=== PATIENT | female | born 1940 | race Caucasian/White ===

== ENCOUNTER 2023-02-01 11:13 | Emergency (ER) | payer MEDICARE ==
[2023-02-01 13:13] LABS: Bacteria/HPF None Seen HPF (None Seen); Bilirubin Negative (Negative); Blood, Urine Negative (Negative); CAUTI Indications for Culture Dysuria,urgency,freq; Clarity Turbid (Clear); Glucose, Urine (Dipstick) Normal (Negative); Ketone, Urine 20 mg/dL (Negative); Leukocyte 500 Leu/uL (Negative); Nitrite Negative (Negative); Protein, Urine (Dipstick) 30 mg/dL (Neg-Trace); Specific Gravity, Urine 1.019 (1.002-1.036); Urobilinogen Normal mg/dL (Less than 2); WBC/HPF Greater than 50 HPF (0-3); pH, Urine 5.5 (5.0-9.0)
[2023-02-01 13:17] LABS: Urine Culture Reflex Yes Yes
== END 2023-02-01 14:13 | disposition home or self-care (01) ==
LOC: ERS 11:13
DX: N39.0 Urinary tract infection, site not specified (principal); I10 Essential (primary) hypertension; R11.0 Nausea; E11.9 Type 2 diabetes mellitus without complications; E78.5 Hyperlipidemia, unspecified; Z79.899 Other long term (current) drug therapy; Z79.85 Long-term (current) use of injectable non-insulin antidiabetic drugs
CPT/HCPCS: 81001; 87086; 99283

== ENCOUNTER 2023-02-18 16:54 | Emergency (ER) | payer MEDICARE ==
[2023-02-18 17:40] LABS: #Eosinphils 0.2 thou/uL (0.0-0.7); #Monocytes 0.6 thou/uL (0.11-0.59); #Neutrophils 3.2 thou/uL (1.40-6.50); %Basophils 0.6 % (0.0-1.0); %Eosinophils 3.6 % (0.0-10.0); %Lymphocytes 38.7 % (21.0-51.0); %Monocytes 8.8 % (0.0-10.0); Hematocrit 40.6 % (36.0-47.0); Hemoglobin 13.2 g/dL (12.0-16.0); Mean Corpuscular HGB CONC 32.5 g/dL (32.0-36.0); Mean Corpuscular Hemoglobin 32.6 pg (27.0-31.0); Mean Corpuscular Volume 100.2 fl (78.0-98.0); Mean Platelet Volume 9.5 fL (7.4-10.4); Platelet Count 228 10x3/uL (130-400); RBC Distribution Width 13.2 % (11.5-14.5); Red Blood Cell (RBC) Count 4.05 mill/uL (4.20-5.40); White Blood Cell (WBC) Count 6.6 10x3/uL (4.8-10.8)
[2023-02-18 18:06] LABS: Bacteria/HPF 2+ HPF (None Seen); Bilirubin Negative (Negative); Blood, Urine Negative (Negative); CAUTI Indications for Culture Dysuria,urgency,freq; Clarity Turbid (Clear); Glucose, Urine (Dipstick) Normal (Negative); Ketone, Urine Negative (Negative); Leukocyte 500 Leu/uL (Negative); Nitrite Negative (Negative); Protein, Urine (Dipstick) 20 mg/dL (Neg-Trace); RBC/HPF 0-3 HPF (0-3); Specific Gravity, Urine 1.019 (1.002-1.036); Squamous Epithelial 0-3 HPF (0-3); Urobilinogen Normal mg/dL (Less than 2); WBC/HPF Greater than 50 HPF (0-3)
[2023-02-18 18:17] LABS: Yeast-Budding 1+ HPF (None Seen)
[2023-02-18 18:18] LABS: Urine Culture Reflex Yes Yes
[2023-02-18 18:31] LABS: ALT (SGPT) 12 U/L (8-55); AST (SGOT) 16 U/L (5-34); Albumin 3.9 g/dL (3.4-4.8); Alkaline Phosphatase 95 U/L (40-110); Anion Gap 15 mmol/L (10-20); BUN (Urea Nitrogen) 17 mg/dL (9.8-20.1); Bilirubin, Total 0.7 mg/dL (0.2-1.2); Calc. Creatinine Clearance 0 mL/min (70-130); Calcium 8.8 mg/dL (7.8-10.44); Carbon Dioxide 24 mmol/L (23-31); Chloride 107 mmol/L (98-107); Estimated GFR 55; Globulin 2.5 g/dL (2.4-3.5); Glucose 90 mg/dL (83-110); Protein, Total 6.4 g/dL (5.8-8.1); Sodium 142 mmol/L (136-145)
== END 2023-02-18 17:16 | disposition home or self-care (01) ==
LOC: ERS 16:54
DX: R82.71 Bacteriuria (principal); B37.31 Acute candidiasis of vulva and vagina; E11.9 Type 2 diabetes mellitus without complications; E78.5 Hyperlipidemia, unspecified; Z79.899 Other long term (current) drug therapy; Z79.84 Long term (current) use of oral hypoglycemic drugs
CPT/HCPCS: 51701; 80053; 81001; 85025; 87086; 99283

== ENCOUNTER 2023-09-09 10:44 | Inpatient (IN) | payer MEDICARE ==
[2023-09-09] MEDS ORDERED: Ondansetron PF 4 MG/2 ML Vial ONE (11:01)
[2023-09-09] MEDS ORDERED: Iopamidol-370 76% 500 ML MDV (1 ML CHARGE) ONE (11:02)
[2023-09-09 11:54] LABS: #Basophils 0.03 10x3/uL (0.0-0.2); %Basophils 0.2 % (0.0-1.0); %Eosinophils 0.3 % (0.0-10.0); %Lymphocytes 7.6 % (21.0-51.0); %Monocytes 3.4 % (0.0-10.0); Hematocrit 27.5 % (36.0-47.0); Hemoglobin 8.9 g/dL (12.0-16.0); Mean Corpuscular HGB CONC 32.4 g/dL (32.0-36.0); Mean Corpuscular Hemoglobin 33.8 pg (27.0-31.0); Mean Corpuscular Volume 104.6 fL (78.0-98.0); Mean Platelet Volume 11.9 fL (7.4-10.4); Platelet Count 103 10x3/uL (130-400); RBC Distribution Width 13.2 % (11.5-14.5); Red Blood Cell (RBC) Count 2.63 mill/uL (4.20-5.40)
[2023-09-09 12:02] LABS: INR-International Normal Ratio 1.2; PTT 35.5 sec (22.9-36.1)
[2023-09-09 12:06] LABS: Troponin I Less than 0.010 ng/mL (< 0.028)
[2023-09-09 12:14] LABS: ALT (SGPT) 14 U/L (8-55); AST (SGOT) 31 U/L (5-34); Albumin 3.3 g/dL (3.4-4.8); Alkaline Phosphatase 91 U/L (40-110); Anion Gap 19 mmol/L (10-20); BUN (Urea Nitrogen) 109 mg/dL (9.8-20.1); Bilirubin, Total 0.5 mg/dL (0.2-1.2); Calc. Creatinine Clearance 0 mL/min (70-130); Calcium 6.6 mg/dL (7.8-10.44); Carbon Dioxide 14 mmol/L (23-31); Chloride 114 mmol/L (98-107); Estimated GFR 6; Globulin 2.9 g/dL (2.4-3.5); Glucose 99 mg/dL (83-110); Potassium 6.8 mmol/L (3.5-5.1); Protein, Total 6.2 g/dL (5.8-8.1); Sodium 140 mmol/L (136-145)
[2023-09-09] MEDS ORDERED: Dextrose 10% in Water 250 ML ONE (13:00)
[2023-09-09] MEDS ORDERED: CALCIUM GLUC 1 GM/NS 50 ML IV Bag ONE (13:01)
[2023-09-09] MEDS ORDERED: Insulin Regular, Human 100 UNIT/ML 10 ML VIAL ONE (13:01)
[2023-09-09 13:15] LABS: Bilirubin Negative (Negative); Blood, Urine Negative (Negative); CAUTI Indications for Culture Dysuria,urgency,freq; Clarity Turbid (Clear); Glucose, Urine (Dipstick) Normal (Negative); Ketone, Urine Negative (Negative); Leukocyte 500 Leu/uL (Negative); Nitrite Negative (Negative); Protein, Urine (Dipstick) 50 mg/dL (Neg-Trace); RBC/HPF 0-3 HPF (0-3); Specific Gravity, Urine 1.012 (1.002-1.036); Squamous Epithelial 0-3 HPF (0-3); Urobilinogen Normal mg/dL (Less than 2)
[2023-09-09 13:31] LABS: Bacteria/HPF 4+ HPF (None Seen); WBC/HPF Greater than 50 HPF (0-3)
[2023-09-09 13:33] LABS: Urine Culture Reflex Yes Yes
[2023-09-09] MEDS ORDERED: Ondansetron PF 4 MG/2 ML Vial IVP PRN (14:15)
[2023-09-09] MEDS ORDERED: Calcium Carbonate 500 MG ChewTAB PO PRN (14:15)
[2023-09-09] MEDS ORDERED: Senokot S 8.6-50 MG TAB PO PRN (14:15)
[2023-09-09] MEDS ORDERED: hydrALAZINE 20 MG/ML VIAL SLOW IVP PRN (14:15)
[2023-09-09] MEDS ORDERED: cefTRIAXone (ROCEPHIN) 2 GM VIAL ONE (14:24)
[2023-09-09] MEDS ORDERED: Lorazepam 2 MG/ML VIAL SLOW IVP PRN (14:27)
[2023-09-09] MEDS ORDERED: Dextrose 5% in Water 1,000 ML IV PRN (14:44)
[2023-09-09] MEDS ORDERED: Glucagon 1 MG/ML KIT IM PRN (14:44)
[2023-09-09] MEDS ORDERED: Heparin 5,000 UNITS/ML VIAL SC SCH (15:00)
[2023-09-09] MEDS ORDERED: Insulin Lispro 100 UNIT/ML 10 ML VIAL SC PRN (15:59)
[2023-09-09] MEDS: Dextrose 50% Abboject 50 ML SYRINGE SLOW IVP SCH (16:55)
[2023-09-09] MEDS: CALCIUM GLUC 1 GM/NS 50 ML 1 GM in Premix 1 BAG IVPB SCH ×2 (16:55→21:24)
[2023-09-09] MEDS: Sodium Chloride 0.9% 1,000 ML IV SCH ×3 (16:55→17:47)
[2023-09-09] MEDS: Insulin Regular, Human 100 UNIT/ML 10 ML VIAL IVP SCH (16:55)
[2023-09-09] MEDS: LOKELMA 10 GM PACKET PO SCH (16:58)
[2023-09-09] MEDS: Acetaminophen 325 MG TAB PO SCH (16:58)
[2023-09-09] MEDS ORDERED: oxyCODONE/Acetaminophen 5 mg/325 mg Tablet PO PRN (18:00)
[2023-09-09 19:05] LABS: Troponin I Less than 0.010 ng/mL (< 0.028)
[2023-09-09 19:23] LABS: Anion Gap 18 mmol/L (10-20); BUN (Urea Nitrogen) 100 mg/dL (9.8-20.1); Calc. Creatinine Clearance 10 mL/min (70-130); Calcium 6.5 mg/dL (7.8-10.44); Carbon Dioxide 15 mmol/L (23-31); Chloride 112 mmol/L (98-107); Estimated GFR 6; Glucose 76 mg/dL (83-110); Potassium 5.4 mmol/L (3.5-5.1); Sodium 140 mmol/L (136-145)
[2023-09-09] MEDS: Cefepime 1 GM in Sodium Chloride 0.9% 100 ML IVPB SCH (19:28)
[2023-09-09] MEDS: Sodium Bicarb 50 mEq/50 ML VIAL IVP SCH (21:24)
[2023-09-09] MEDS: Sodium Bicarbonate Tab 325 MG TAB PO SCH (21:34)
[2023-09-09] MEDS: Atorvastatin Calcium 40 MG TAB PO SCH (21:34)
[2023-09-10 00:17] LABS: Anion Gap 18 mmol/L (10-20); BUN (Urea Nitrogen) 104 mg/dL (9.8-20.1); Calc. Creatinine Clearance 9 mL/min (70-130); Calcium 6.8 mg/dL (7.8-10.44); Carbon Dioxide 15 mmol/L (23-31); Chloride 113 mmol/L (98-107); Estimated GFR 6; Glucose 78 mg/dL (83-110); Potassium 5.2 mmol/L (3.5-5.1); Sodium 141 mmol/L (136-145)
[2023-09-10] MEDS: CALCIUM GLUC 1 GM/NS 50 ML 1 GM in Premix 1 BAG IVPB SCH ×2 (00:44→07:35)
[2023-09-10] MEDS: Calcium Gluconate 4.6 MEQ in Sodium Chloride 0.9% 100 ML IVPB ONE ×2 (00:46)
[2023-09-10] MEDS: Sodium Bicarbonate 150 MEQ in Dextrose 5% in Water 1,000 ML IV SCH (00:48)
[2023-09-10 04:38] LABS: Hematocrit 26.5 % (36.0-47.0); Hemoglobin 8.4 g/dL (12.0-16.0); Mean Corpuscular HGB CONC 31.7 g/dL (32.0-36.0); Mean Corpuscular Hemoglobin 33.5 pg (27.0-31.0); Mean Corpuscular Volume 105.6 fL (78.0-98.0); Mean Platelet Volume 12.2 fL (7.4-10.4); Platelet Count 103 10x3/uL (130-400); RBC Distribution Width 13.4 % (11.5-14.5); Red Blood Cell (RBC) Count 2.51 mill/uL (4.20-5.40)
[2023-09-10 04:44] LABS: Hemoglobin A1c 5.2 % (4.0-6.0)
[2023-09-10 05:08] LABS: Anisocytosis SLIGHT = 6-15 cells HPF (0-5); Lymphocytes 5 % (21-51); Macrocytosis SLIGHT = 6-15 cells HPF (0-5); Monocytes 2 % (0-10); Neutrophil 93 % (42-75); Nucleated RBC (Manual Ct) 1 % (0); Platelet Adequacy Comment Platelets Decreased; Polychromasia SLIGHT = 2-3 cells HPF (0-2)
[2023-09-10 05:15] LABS: ALT (SGPT) 13 U/L (8-55); AST (SGOT) 19 U/L (5-34); Alkaline Phosphatase 84 U/L (40-110); Anion Gap 20 mmol/L (10-20); BUN (Urea Nitrogen) 102 mg/dL (9.8-20.1); Bilirubin, Total 0.4 mg/dL (0.2-1.2); Calc. Creatinine Clearance 9 mL/min (70-130); Calcium 6.9 mg/dL (7.8-10.44); Carbon Dioxide 16 mmol/L (23-31); Cardiac Risk 1.9 (Less than 4.5); Chloride 113 mmol/L (98-107); Cholesterol 67 mg/dl (< 200 Desired); Estimated GFR 6; Globulin 2.4 g/dL (2.4-3.5); Glucose 73 mg/dL (83-110); HDL Cholesterol 35 mg/dL (>60 Neg Risk); LDL Cholesterol, Calculated 26 mg/dL; Potassium 5.1 mmol/L (3.5-5.1); Protein, Total 5.4 g/dL (5.8-8.1); Sodium 144 mmol/L (136-145); Triglycerides 32 mg/dL (Less than 150)
[2023-09-10] MEDS: Pantoprazole DR 40 MG TAB PO SCH (08:58)
[2023-09-10] MEDS: Aspirin 81 mg Enteric Coated Tablet PO SCH (08:58)
[2023-09-10] MEDS: Clopidogrel Bisulfate 75 MG TAB PO SCH (08:58)
[2023-09-10] MEDS: Tamsulosin HCl 0.4 MG CAP PO SCH (08:59)
[2023-09-10] MEDS: Azithromycin 500 MG in Sodium Chloride 0.9% 250 ML 250 ML IVPB SCH (09:02)
[2023-09-10] MEDS: Dextrose 50% Abboject 50 ML SYRINGE SLOW IVP PRN (11:15)
[2023-09-10] MEDS: Dextrose 5 % And 0.9 % NaCl 1,000 ML IV SCH (11:19)
[2023-09-10] MEDS: Albumin 25% 25 GM (100 mL) BOT IVPB SCH (13:33)
[2023-09-11 05:18] LABS: #Basophils 0.03 10x3/uL (0.0-0.2); %Basophils 0.4 % (0.0-1.0); %Lymphocytes 14.7 % (21.0-51.0); %Monocytes 7.4 % (0.0-10.0); %Neutrophils 68.2 % (42.0-75.0); Hematocrit 23.7 % (36.0-47.0); Hemoglobin 7.4 g/dL (12.0-16.0); Mean Corpuscular HGB CONC 31.2 g/dL (32.0-36.0); Mean Corpuscular Hemoglobin 33.3 pg (27.0-31.0); Mean Corpuscular Volume 106.8 fL (78.0-98.0); Mean Platelet Volume 12.1 fL (7.4-10.4); Platelet Count 99 10x3/uL (130-400); RBC Distribution Width 13.8 % (11.5-14.5); Red Blood Cell (RBC) Count 2.22 mill/uL (4.20-5.40)
[2023-09-11 05:28] LABS: ALT (SGPT) 11 U/L (8-55); AST (SGOT) 15 U/L (5-34); Albumin 3.6 g/dL (3.4-4.8); Alkaline Phosphatase 64 U/L (40-110); Anion Gap 17 mmol/L (10-20); BUN (Urea Nitrogen) 98 mg/dL (9.8-20.1); Bilirubin, Total 0.3 mg/dL (0.2-1.2); Calc. Creatinine Clearance 9 mL/min (70-130); Calcium 6.7 mg/dL (7.8-10.44); Carbon Dioxide 15 mmol/L (23-31); Chloride 115 mmol/L (98-107); Estimated GFR 6; Globulin 1.8 g/dL (2.4-3.5); Glucose 132 mg/dL (83-110); Magnesium 1.5 mg/dL (1.6-2.6); Phosphorus 8.8 mg/dL (2.3-4.7); Protein, Total 5.4 g/dL (5.8-8.1); Sodium 142 mmol/L (136-145)
[2023-09-11] MEDS: Magnesium 2 GM/50 ML(in water) 2 GM in Premix 1 BAG IVPB SCH (06:06)
[2023-09-11] MEDS: CALCIUM GLUC 1 GM/NS 50 ML 1 GM in Premix 1 BAG IVPB SCH (06:07)
[2023-09-11] MEDS: Calcium Gluconate 4.6 MEQ in Sodium Chloride 0.9% 100 ML IVPB ONE (09:23)
[2023-09-11] MEDS ORDERED: Morphine 2 MG/ML VIAL SLOW IVP PRN (11:41)
[2023-09-11] MEDS: Calcium Acetate 667 MG CAP PO SCH (13:54)
[2023-09-11] MEDS ORDERED: Meropenem 500 MG in Sodium Chloride 0.9% 100 ML IVPB SCH (14:00)
[2023-09-11] MEDS: Meropenem 500 MG in Sodium Chloride 0.9% 100 ML IVPB SCH (14:32)
[2023-09-12] MEDS: Meropenem 500 MG in Sodium Chloride 0.9% 100 ML IVPB SCH (02:42)
[2023-09-12 06:35] LABS: Hematocrit 24.7 % (36.0-47.0); Hemoglobin 7.8 g/dL (12.0-16.0); Mean Corpuscular HGB CONC 31.6 g/dL (32.0-36.0); Mean Corpuscular Hemoglobin 33.6 pg (27.0-31.0); Mean Corpuscular Volume 106.5 fL (78.0-98.0); Mean Platelet Volume 11.3 fL (7.4-10.4); Platelet Count 120 10x3/uL (130-400); Red Blood Cell (RBC) Count 2.32 mill/uL (4.20-5.40)
[2023-09-12 07:02] LABS: Band 3 % (5-11); Eosinophils 5 % (0-10); Lymphocytes 15 % (21-51); Macrocytosis SLIGHT = 6-15 cells HPF (0-5); Metamyelocyte 1 % (0-0); Monocytes 5 % (0-10); Myelocyte 1 % (0-0); Neutrophil 70 % (42-75); Platelet Adequacy Comment Platelets Decreased
[2023-09-12 07:10] LABS: ALT (SGPT) 10 U/L (8-55); AST (SGOT) 11 U/L (5-34); Albumin 3.3 g/dL (3.4-4.8); Alkaline Phosphatase 61 U/L (40-110); Anion Gap 16 mmol/L (10-20); BUN (Urea Nitrogen) 92 mg/dL (9.8-20.1); Bilirubin, Total 0.3 mg/dL (0.2-1.2); Calc. Creatinine Clearance 10 mL/min (70-130); Calcium 6.9 mg/dL (7.8-10.44); Carbon Dioxide 15 mmol/L (23-31); Chloride 120 mmol/L (98-107); Estimated GFR 6; Globulin 1.8 g/dL (2.4-3.5); Glucose 122 mg/dL (83-110); Potassium 4.8 mmol/L (3.5-5.1); Protein, Total 5.1 g/dL (5.8-8.1); Sodium 146 mmol/L (136-145)
[2023-09-12] MEDS: Calcium Chloride 1 GM/10 ML Abboject SYRINGE IVP SCH (08:52)
[2023-09-12] MEDS: Dextrose 5 %-0.45 % NaCl 1,000 ML IV SCH (08:54)
[2023-09-13 04:30] LABS: #Basophils 0.04 10x3/uL (0.0-0.2); %Basophils 0.3 % (0.0-1.0); %Eosinophils 0.5 % (0.0-10.0); %Lymphocytes 7.2 % (21.0-51.0); %Monocytes 7.5 % (0.0-10.0); %Neutrophils 81.7 % (42.0-75.0); Hematocrit 27.3 % (36.0-47.0); Hemoglobin 8.5 g/dL (12.0-16.0); Mean Corpuscular HGB CONC 31.1 g/dL (32.0-36.0); Mean Corpuscular Hemoglobin 33.5 pg (27.0-31.0); Mean Corpuscular Volume 107.5 fL (78.0-98.0); Mean Platelet Volume 11.4 fL (7.4-10.4); Platelet Count 136 10x3/uL (130-400); RBC Distribution Width 14.1 % (11.5-14.5); Red Blood Cell (RBC) Count 2.54 mill/uL (4.20-5.40)
[2023-09-13 05:09] LABS: ALT (SGPT) 11 U/L (8-55); AST (SGOT) 16 U/L (5-34); Albumin 3.4 g/dL (3.4-4.8); Alkaline Phosphatase 67 U/L (40-110); Anion Gap 18 mmol/L (10-20); BUN (Urea Nitrogen) 87 mg/dL (9.8-20.1); Bilirubin, Total 0.4 mg/dL (0.2-1.2); Calc. Creatinine Clearance 10 mL/min (70-130); Carbon Dioxide 14 mmol/L (23-31); Chloride 121 mmol/L (98-107); Estimated GFR 7; Globulin 2.1 g/dL (2.4-3.5); Glucose 142 mg/dL (83-110); Potassium 4.8 mmol/L (3.5-5.1); Protein, Total 5.5 g/dL (5.8-8.1); Sodium 148 mmol/L (136-145)
[2023-09-13] MEDS: Calcitriol 0.25 MCG CAP PO SCH (08:36)
[2023-09-13] MEDS: Dextrose 5 %-0.45 % NaCl 1,000 ML IV SCH (08:37)
[2023-09-13] MEDS: Meropenem 500 MG in Sodium Chloride 0.9% 100 ML IVPB SCH (13:45)
[2023-09-14 05:12] VITALS: BMI 36.8
[2023-09-14 06:19] LABS: #Basophils 0.06 10x3/uL (0.0-0.2); %Basophils 0.7 % (0.0-1.0); %Eosinophils 2.4 % (0.0-10.0); %Lymphocytes 15.1 % (21.0-51.0); %Monocytes 13.2 % (0.0-10.0); %Neutrophils 66.8 % (42.0-75.0); Hematocrit 27.2 % (36.0-47.0); Hemoglobin 8.8 g/dL (12.0-16.0); Mean Corpuscular HGB CONC 32.4 g/dL (32.0-36.0); Mean Corpuscular Hemoglobin 33.1 pg (27.0-31.0); Mean Corpuscular Volume 102.3 fL (78.0-98.0); Mean Platelet Volume 11.4 fL (7.4-10.4); Platelet Count 111 10x3/uL (130-400); Red Blood Cell (RBC) Count 2.66 mill/uL (4.20-5.40)
[2023-09-14 07:01] LABS: ALT (SGPT) 12 U/L (8-55); AST (SGOT) 18 U/L (5-34); Albumin 3.2 g/dL (3.4-4.8); Alkaline Phosphatase 73 U/L (40-110); Anion Gap 21 mmol/L (10-20); BUN (Urea Nitrogen) 83 mg/dL (9.8-20.1); Bilirubin, Total 0.4 mg/dL (0.2-1.2); Calc. Creatinine Clearance 12 mL/min (70-130); Calcium 7.7 mg/dL (7.8-10.44); Carbon Dioxide 12 mmol/L (23-31); Chloride 117 mmol/L (98-107); Estimated GFR 7; Globulin 2.3 g/dL (2.4-3.5); Glucose 115 mg/dL (83-110); Potassium 4.9 mmol/L (3.5-5.1); Protein, Total 5.5 g/dL (5.8-8.1); Sodium 145 mmol/L (136-145)
[2023-09-15 06:29] LABS: Anion Gap 14 mmol/L (10-20); BUN (Urea Nitrogen) 84 mg/dL (9.8-20.1); Calc. Creatinine Clearance 12 mL/min (70-130); Calcium 7.7 mg/dL (7.8-10.44); Carbon Dioxide 13 mmol/L (23-31); Chloride 121 mmol/L (98-107); Estimated GFR 7; Glucose 102 mg/dL (83-110); Potassium 4.7 mmol/L (3.5-5.1); Sodium 143 mmol/L (136-145)
[2023-09-15 08:31] LABS: #Basophils 0.03 10x3/uL (0.0-0.2); %Basophils 0.5 % (0.0-1.0); %Eosinophils 5.6 % (0.0-10.0); %Monocytes 14.3 % (0.0-10.0); %Neutrophils 60.4 % (42.0-75.0); Hematocrit 24.8 % (36.0-47.0); Hemoglobin 7.7 g/dL (12.0-16.0); Mean Corpuscular Hemoglobin 33.5 pg (27.0-31.0); Mean Corpuscular Volume 107.8 fL (78.0-98.0); Mean Platelet Volume 11.1 fL (7.4-10.4); Platelet Count 97 10x3/uL (130-400); RBC Distribution Width 14.2 % (11.5-14.5)
[2023-09-15] MEDS: Meropenem 500 MG in Sodium Chloride 0.9% 100 ML IVPB SCH (13:23)
[2023-09-16 04:38] LABS: Anion Gap 14 mmol/L (10-20); BUN (Urea Nitrogen) 84 mg/dL (9.8-20.1); Calc. Creatinine Clearance 12 mL/min (70-130); Calcium 7.8 mg/dL (7.8-10.44); Carbon Dioxide 16 mmol/L (23-31); Chloride 117 mmol/L (98-107); Estimated GFR 7; Glucose 115 mg/dL (83-110); Potassium 4.9 mmol/L (3.5-5.1); Sodium 142 mmol/L (136-145)
[2023-09-16 04:46] LABS: #Basophils 0.04 10x3/uL (0.0-0.2); %Basophils 0.7 % (0.0-1.0); %Eosinophils 6.5 % (0.0-10.0); %Lymphocytes 21.1 % (21.0-51.0); %Monocytes 14.1 % (0.0-10.0); %Neutrophils 56.7 % (42.0-75.0); Hematocrit 24.6 % (36.0-47.0); Hemoglobin 7.6 g/dL (12.0-16.0); Mean Corpuscular HGB CONC 31.1 g/dL (32.0-36.0); Mean Corpuscular Hemoglobin 33.6 pg (27.0-31.0); Mean Corpuscular Volume 108.1 fL (78.0-98.0); Mean Platelet Volume 11.7 fL (7.4-10.4); Platelet Count 90 10x3/uL (130-400); Red Blood Cell (RBC) Count 2.23 mill/uL (4.20-5.40)
[2023-09-16] MEDS: Insulin Lispro 100 UNIT/ML 10 ML VIAL SC PRN (06:36)
[2023-09-16] MEDS: Dextrose 5 %-0.45 % NaCl 1,000 ML IV SCH (10:07)
[2023-09-16 15:06] VITALS: BMI 36.8
[2023-09-17 09:47] LABS: #Basophils 0.03 10x3/uL (0.0-0.2); %Basophils 0.6 % (0.0-1.0); %Eosinophils 7.1 % (0.0-10.0); %Monocytes 13.3 % (0.0-10.0); Hematocrit 24.6 % (36.0-47.0); Hemoglobin 7.7 g/dL (12.0-16.0); Mean Corpuscular HGB CONC 31.3 g/dL (32.0-36.0); Mean Corpuscular Hemoglobin 33.8 pg (27.0-31.0); Mean Corpuscular Volume 107.9 fL (78.0-98.0); Mean Platelet Volume 11.6 fL (7.4-10.4); Platelet Count 96 10x3/uL (130-400); RBC Distribution Width 13.8 % (11.5-14.5); Red Blood Cell (RBC) Count 2.28 mill/uL (4.20-5.40)
[2023-09-17 10:10] LABS: Anion Gap 14 mmol/L (10-20); BUN (Urea Nitrogen) 84 mg/dL (9.8-20.1); Calc. Creatinine Clearance 12 mL/min (70-130); Calcium 7.8 mg/dL (7.8-10.44); Carbon Dioxide 15 mmol/L (23-31); Chloride 116 mmol/L (98-107); Estimated GFR 8; Glucose 112 mg/dL (83-110); Potassium 5.1 mmol/L (3.5-5.1); Sodium 140 mmol/L (136-145)
[2023-09-17 13:30] VITALS: BP 134/71; TEMP 97.3
== END 2023-09-17 13:30 | DRG 193 ==
LOC: ERS 10:44 → SUATTDRO 10:44 → IMCU/EMU 16:52 → T4-B 09-13 17:30
PROVIDERS: ADMIT Internal Medicine; ATTEND Internal Medicine
PROC: 4A00X4Z Measurement of Central Nervous Electrical Activity, External Approach (ICD-10-PCS; principal; 2023-09-10)
DX: J18.9 Pneumonia, unspecified organism (principal); G93.41 Metabolic encephalopathy; N17.0 Acute kidney failure with tubular necrosis; E87.20 Acidosis, unspecified; N39.0 Urinary tract infection, site not specified; N25.81 Secondary hyperparathyroidism of renal origin; E87.0 Hyperosmolality and hypernatremia; G45.9 Transient cerebral ischemic attack, unspecified; N18.5 Chronic kidney disease, stage 5; I12.0 Hypertensive chronic kidney disease with stage 5 chronic kidney disease or end stage renal disease; E66.9 Obesity, unspecified; G89.29 Other chronic pain; E11.22 Type 2 diabetes mellitus with diabetic chronic kidney disease; E87.5 Hyperkalemia; K21.9 Gastro-esophageal reflux disease without esophagitis; D69.6 Thrombocytopenia, unspecified; E83.51 Hypocalcemia; E83.39 Other disorders of phosphorus metabolism; E87.8 Other disorders of electrolyte and fluid balance, not elsewhere classified; D63.1 Anemia in chronic kidney disease; B96.20 Unspecified Escherichia coli [E. coli] as the cause of diseases classified elsewhere; Z79.82 Long term (current) use of aspirin; Z79.899 Other long term (current) drug therapy
CPT/HCPCS: 36415; 36416; 51702; 70450; 70496; 70498; 70551; 71045; 74177; 80048; 80053; 80061; 81001; 82310; 83036; 83735; 83970; 84100; 84145; 84443; 84484; 85025; 85610; 85730; 87040; 87077; 87086; 87186; 93005; 93306; 95700; 95711; 95819; 96374; 96375; J0456; J0613; J0692; J0696; J1815; J2185; J2405; J3475; J3490; J7042; J7050; J7070; J7999; P9047; Q9967

== ENCOUNTER 2023-09-21 14:19 | Inpatient (IN) | payer MEDICARE ==
[2023-09-21 14:55] LABS: Actual Bicarbonate (HCO3v) 16.8 mEq/L (22-28); Base Excess -10.3 mEq/L (-2.0 to +3.0); Calcium, Ionized (venous) 1.22 mmol/L (1.16-1.32); Chloride (VBG) 113 mmol/L (98-106); Hematocrit-VBG 26 % (36.0-47.0); Hemoglobin (Hb) 8.8 g/dL (11.7-16.1); Potassium (VBG) 5.24 mmol/L (3.70-5.30); Sodium 143 mmol/L (133-146); pH (venous) 7.216 (7.32-7.43)
[2023-09-21 15:08] LABS: #Basophils 0.03 10x3/uL (0.0-0.2); %Basophils 0.7 % (0.0-1.0); %Eosinophils 2.5 % (0.0-10.0); %Monocytes 8.6 % (0.0-10.0); %Neutrophils 69.6 % (42.0-75.0); Hematocrit 24.9 % (36.0-47.0); Hemoglobin 8.2 g/dL (12.0-16.0); Mean Corpuscular HGB CONC 32.9 g/dL (32.0-36.0); Mean Corpuscular Hemoglobin 34.5 pg (27.0-31.0); Mean Corpuscular Volume 104.6 fL (78.0-98.0); Mean Platelet Volume 10.5 fL (7.4-10.4); Platelet Count 135 10x3/uL (130-400); RBC Distribution Width 13.8 % (11.5-14.5); Red Blood Cell (RBC) Count 2.38 mill/uL (4.20-5.40)
[2023-09-21 15:16] LABS: Phosphorus 6.4 mg/dL (2.3-4.7)
[2023-09-21 15:20] LABS: ALT (SGPT) 11 U/L (8-55); AST (SGOT) 18 U/L (5-34); Albumin 3.3 g/dL (3.4-4.8); Alkaline Phosphatase 78 U/L (40-110); Anion Gap 17 mmol/L (10-20); BUN (Urea Nitrogen) 87 mg/dL (9.8-20.1); Bilirubin, Total 0.4 mg/dL (0.2-1.2); Calc. Creatinine Clearance 0 mL/min (70-130); Carbon Dioxide 16 mmol/L (23-31); Chloride 118 mmol/L (98-107); Estimated GFR 7; Globulin 2.3 g/dL (2.4-3.5); Glucose 119 mg/dL (83-110); Potassium 5.4 mmol/L (3.5-5.1); Protein, Total 5.6 g/dL (5.8-8.1); Sodium 146 mmol/L (136-145)
[2023-09-21] MEDS ORDERED: Insulin Regular, Human 100 UNIT/ML 10 ML VIAL ONE (16:24)
[2023-09-21] MEDS ORDERED: CALCIUM GLUC 1 GM/NS 50 ML IV Bag ONE ×2 (16:24→16:25)
[2023-09-21] MEDS ORDERED: Dextrose 10% in Water 250 ML ONE (16:24)
[2023-09-21] MEDS ORDERED: Senokot S 8.6-50 MG TAB PO PRN (17:16)
[2023-09-21] MEDS ORDERED: Acetaminophen 325 MG TAB PO PRN (17:16)
[2023-09-21 18:32] VITALS: BMI 39.0
[2023-09-21] MEDS ORDERED: Furosemide 20 MG (2 mL) VIAL ONE (20:14)
[2023-09-21] MEDS ORDERED: Sodium Bicarbonate Tab 325 MG TAB ONE (20:14)
[2023-09-21] MEDS ORDERED: Heparin 5,000 UNITS/ML VIAL ONE (20:14)
[2023-09-21] MEDS: Sodium Bicarbonate Tab 325 MG TAB PO SCH (20:17)
[2023-09-21] MEDS: Heparin 5,000 UNITS/ML VIAL SC SCH (20:20)
[2023-09-21] MEDS: Furosemide 20 MG (2 mL) VIAL SLOW IVP SCH (20:20)
[2023-09-22 00:47] LABS: Anion Gap 19 mmol/L (10-20); BUN (Urea Nitrogen) 87 mg/dL (9.8-20.1); Calc. Creatinine Clearance 12 mL/min (70-130); Calcium 9.1 mg/dL (7.8-10.44); Carbon Dioxide 16 mmol/L (23-31); Chloride 117 mmol/L (98-107); Estimated GFR 7; Glucose 118 mg/dL (83-110); Phosphorus 6.1 mg/dL (2.3-4.7); Potassium 5.3 mmol/L (3.5-5.1); Sodium 147 mmol/L (136-145)
[2023-09-22 04:22] LABS: Hematocrit 25.8 % (36.0-47.0); Hemoglobin 8.1 g/dL (12.0-16.0); Mean Corpuscular HGB CONC 31.4 g/dL (32.0-36.0); Mean Corpuscular Hemoglobin 32.8 pg (27.0-31.0); Mean Corpuscular Volume 104.5 fL (78.0-98.0); Mean Platelet Volume 10.9 fL (7.4-10.4); Platelet Count 160 10x3/uL (130-400); RBC Distribution Width 13.5 % (11.5-14.5); Red Blood Cell (RBC) Count 2.47 mill/uL (4.20-5.40)
[2023-09-22 04:44] LABS: Albumin 3.2 g/dL (3.4-4.8); Anion Gap 15 mmol/L (10-20); BUN (Urea Nitrogen) 87 mg/dL (9.8-20.1); BUN/Creatinine Ratio 15.29; Calc. Creatinine Clearance 12 mL/min (70-130); Calcium 9.2 mg/dL (7.8-10.44); Carbon Dioxide 18 mmol/L (23-31); Chloride 117 mmol/L (98-107); Estimated GFR 7; Glucose 113 mg/dL (83-110); Phosphorus 6.2 mg/dL (2.3-4.7); Potassium 5.4 mmol/L (3.5-5.1); Sodium 145 mmol/L (136-145)
[2023-09-22] MEDS ORDERED: Ipratropium/Albuterol 3 ML NEB NEB PRN (09:14)
[2023-09-22] MEDS: Furosemide 40 MG (4 mL) VIAL SLOW IVP SCH (10:15)
[2023-09-22] MEDS: Sevelamer Carbonate 800 MG TAB PO SCH (13:54)
[2023-09-22 14:07] VITALS: BMI 39.0
[2023-09-22] MEDS: Atorvastatin Calcium 40 MG TAB PO SCH (20:16)
[2023-09-23 05:48] LABS: #Basophils 0.05 10x3/uL (0.0-0.2); %Eosinophils 6.2 % (0.0-10.0); %Lymphocytes 14.6 % (21.0-51.0); %Monocytes 14.6 % (0.0-10.0); %Neutrophils 62.4 % (42.0-75.0); Hematocrit 26.4 % (36.0-47.0); Hemoglobin 8.3 g/dL (12.0-16.0); Mean Corpuscular HGB CONC 31.4 g/dL (32.0-36.0); Mean Corpuscular Hemoglobin 32.7 pg (27.0-31.0); Mean Corpuscular Volume 103.9 fL (78.0-98.0); Mean Platelet Volume 10.6 fL (7.4-10.4); Platelet Count 159 10x3/uL (130-400); RBC Distribution Width 13.6 % (11.5-14.5); Red Blood Cell (RBC) Count 2.54 mill/uL (4.20-5.40)
[2023-09-23 05:54] LABS: Anion Gap 15 mmol/L (10-20); BUN (Urea Nitrogen) 82 mg/dL (9.8-20.1); Calc. Creatinine Clearance 12 mL/min (70-130); Calcium 8.7 mg/dL (7.8-10.44); Carbon Dioxide 18 mmol/L (23-31); Chloride 115 mmol/L (98-107); Estimated GFR 7; Glucose 98 mg/dL (83-110); Potassium 5.1 mmol/L (3.5-5.1); Sodium 143 mmol/L (136-145)
[2023-09-23] MEDS: Senokot S 8.6-50 MG TAB PO SCH (09:22)
[2023-09-23] MEDS: Furosemide 40 MG (4 mL) VIAL SLOW IVP SCH (09:22)
[2023-09-23] MEDS: Pantoprazole DR 40 MG TAB PO SCH (09:23)
[2023-09-23] MEDS: Aspirin Chewable 81 MG TAB PO SCH (09:23)
[2023-09-23] MEDS: Calcitriol 0.25 MCG CAP PO SCH (09:23)
[2023-09-23] MEDS: Clopidogrel Bisulfate 75 MG TAB PO SCH (09:23)
[2023-09-24 04:46] LABS: #Basophils 0.05 10x3/uL (0.0-0.2); %Basophils 1.2 % (0.0-1.0); %Eosinophils 4.4 % (0.0-10.0); %Lymphocytes 18.3 % (21.0-51.0); %Monocytes 10.4 % (0.0-10.0); %Neutrophils 64.8 % (42.0-75.0); Hematocrit 26.8 % (36.0-47.0); Hemoglobin 8.5 g/dL (12.0-16.0); Mean Corpuscular HGB CONC 31.7 g/dL (32.0-36.0); Mean Corpuscular Hemoglobin 33.5 pg (27.0-31.0); Mean Corpuscular Volume 105.5 fL (78.0-98.0); Mean Platelet Volume 10.4 fL (7.4-10.4); Platelet Count 156 10x3/uL (130-400); RBC Distribution Width 13.2 % (11.5-14.5); Red Blood Cell (RBC) Count 2.54 mill/uL (4.20-5.40)
[2023-09-24 05:10] LABS: Anion Gap 17 mmol/L (10-20); BUN (Urea Nitrogen) 81 mg/dL (9.8-20.1); Calc. Creatinine Clearance 13 mL/min (70-130); Calcium 8.3 mg/dL (7.8-10.44); Carbon Dioxide 16 mmol/L (23-31); Chloride 113 mmol/L (98-107); Estimated GFR 8; Glucose 103 mg/dL (83-110); Sodium 141 mmol/L (136-145)
[2023-09-24] MEDS: Furosemide 40 MG (4 mL) VIAL SLOW IVP SCH (10:35)
[2023-09-25 05:06] LABS: Anion Gap 21 mmol/L (10-20); BUN (Urea Nitrogen) 80 mg/dL (9.8-20.1); Calc. Creatinine Clearance 13 mL/min (70-130); Carbon Dioxide 13 mmol/L (23-31); Chloride 111 mmol/L (98-107); Estimated GFR 8; Glucose 92 mg/dL (83-110); Potassium 5.5 mmol/L (3.5-5.1); Sodium 139 mmol/L (136-145)
[2023-09-25 05:49] LABS: #Basophils 0.04 10x3/uL (0.0-0.2); %Basophils 1.1 % (0.0-1.0); %Eosinophils 3.8 % (0.0-10.0); %Lymphocytes 18.4 % (21.0-51.0); %Monocytes 9.7 % (0.0-10.0); %Neutrophils 65.9 % (42.0-75.0); Hematocrit 24.8 % (36.0-47.0); Hemoglobin 7.9 g/dL (12.0-16.0); Mean Corpuscular HGB CONC 31.9 g/dL (32.0-36.0); Mean Corpuscular Hemoglobin 33.2 pg (27.0-31.0); Mean Corpuscular Volume 104.2 fL (78.0-98.0); Mean Platelet Volume 10.5 fL (7.4-10.4); Platelet Count 162 10x3/uL (130-400); RBC Distribution Width 13.2 % (11.5-14.5); Red Blood Cell (RBC) Count 2.38 mill/uL (4.20-5.40)
[2023-09-25] MEDS: Ferrous Sulfate 325 MG TAB PO SCH (09:15)
[2023-09-25] MEDS: EPOETIN ALFA-EPBX (ESRD) 10,000 UNITS/ML VIAL SC SCH (09:37)
[2023-09-26 04:49] LABS: #Basophils 0.05 10x3/uL (0.0-0.2); %Eosinophils 1.9 % (0.0-10.0); %Monocytes 9.6 % (0.0-10.0); %Neutrophils 72.2 % (42.0-75.0); Hematocrit 25.7 % (36.0-47.0); Hemoglobin 8.2 g/dL (12.0-16.0); Mean Corpuscular HGB CONC 31.9 g/dL (32.0-36.0); Mean Corpuscular Hemoglobin 33.5 pg (27.0-31.0); Mean Corpuscular Volume 104.9 fL (78.0-98.0); Mean Platelet Volume 10.6 fL (7.4-10.4); Platelet Count 189 10x3/uL (130-400); RBC Distribution Width 13.2 % (11.5-14.5); Red Blood Cell (RBC) Count 2.45 mill/uL (4.20-5.40)
[2023-09-26 05:06] LABS: Anion Gap 24 mmol/L (10-20); BUN (Urea Nitrogen) 80 mg/dL (9.8-20.1); Calc. Creatinine Clearance 14 mL/min (70-130); Calcium 8.2 mg/dL (7.8-10.44); Carbon Dioxide 16 mmol/L (23-31); Chloride 111 mmol/L (98-107); Estimated GFR 8; Glucose 100 mg/dL (83-110); Potassium 5.1 mmol/L (3.5-5.1); Sodium 146 mmol/L (136-145)
[2023-09-26] MEDS: Ondansetron PF 4 MG/2 ML Vial IVP PRN (06:41)
[2023-09-27 08:04] VITALS: BP 128/59; TEMP 96.9
== END 2023-09-27 11:50 | DRG 682 ==
LOC: ERS 14:19 → ERHOLD 16:40 → 2NO 21:17
PROVIDERS: ADMIT Internal Medicine; ATTEND Internal Medicine
DX: N17.0 Acute kidney failure with tubular necrosis (principal); I50.33 Acute on chronic diastolic (congestive) heart failure; J96.01 Acute respiratory failure with hypoxia; E87.20 Acidosis, unspecified; I13.0 Hypertensive heart and chronic kidney disease with heart failure and stage 1 through stage 4 chronic kidney disease, or unspecified chronic kidney disease; E87.0 Hyperosmolality and hypernatremia; E11.22 Type 2 diabetes mellitus with diabetic chronic kidney disease; Z79.82 Long term (current) use of aspirin; Z79.899 Other long term (current) drug therapy; E87.5 Hyperkalemia; E83.39 Other disorders of phosphorus metabolism; D53.9 Nutritional anemia, unspecified; Z87.440 Personal history of urinary (tract) infections; N18.9 Chronic kidney disease, unspecified
CPT/HCPCS: 36415; 36416; 71045; 80048; 80053; 82805; 83735; 83880; 84100; 85025; 85027; 93005; 96365; 96375; J0613; J1644; J1815; J1940; J2405; Q5105

== ENCOUNTER 2024-03-07 22:10 | Inpatient (IN) | payer MEDICARE ==
[~2024-03-07 22:10] MED LIST: Iopamidol-370 76% 500 ML MDV (1 ML CHARGE) ONE
[2024-03-07 22:25] LABS: Actual Bicarbonate (HCO3v) 36.7 mEq/L (22-28); Analyzer IN Cardio ER; Calcium, Ionized (venous) 1.14 mmol/L (1.16-1.32); Chloride (VBG) 99 mmol/L (98-106); Hematocrit-VBG 30 % (36.0-47.0); Hemoglobin (Hb) 10.1 g/dL (11.7-16.1); Potassium (VBG) 5.24 mmol/L (3.70-5.30); Sodium 140 mmol/L (133-146)
[2024-03-07 22:29] LABS: pH (venous) 7.177 (7.32-7.43)
[2024-03-07 22:41] LABS: ALT (SGPT) 10 U/L (8-55); AST (SGOT) 19 U/L (5-34); Albumin 2.6 g/dL (3.4-4.8); Alkaline Phosphatase 93 U/L (40-110); Anion Gap 10 mmol/L (10-20); BUN (Urea Nitrogen) 40 mg/dL (9.8-20.1); Bilirubin, Total 0.2 mg/dL (0.2-1.2); Calc. Creatinine Clearance 0 mL/min (70-130); Calcium 8.4 mg/dL (7.8-10.44); Carbon Dioxide 37 mmol/L (23-31); Chloride 102 mmol/L (98-107); Estimated GFR 24; Globulin 3.2 g/dL (2.4-3.5); Glucose 95 mg/dL (83-110); Potassium 5.4 mmol/L (3.5-5.1); Protein, Total 5.8 g/dL (5.8-8.1); Sodium 144 mmol/L (136-145)
[2024-03-07 22:42] LABS: INR-International Normal Ratio 1.2; Prothrombin Time 15.1 sec (12.0-14.7)
[2024-03-07 22:43] LABS: PTT 31.1 sec (22.9-36.1)
[2024-03-07] MEDS ORDERED: EPINEPHrine 1 MG/10 ML Abboject SYRINGE ONE (22:45)
[2024-03-07 22:47] LABS: Troponin I 0.065 ng/mL (< 0.028)
[2024-03-07] MEDS ORDERED: Etomidate 40 MG (20 mL) VIAL ONE (22:48)
[2024-03-07] MEDS ORDERED: Rocuronium Bromide 10 MG/ML (10ML VIAL) ONE (22:48)
[2024-03-07 22:50] LABS: #Basophils 0.05 10x3/uL (0.0-0.2); %Basophils 1.2 % (0.0-1.0); %Eosinophils 1.6 % (0.0-10.0); %Lymphocytes 22.3 % (21.0-51.0); %Monocytes 9.1 % (0.0-10.0); %Neutrophils 61.8 % (42.0-75.0); Anisocytosis SLIGHT = 6-15 cells HPF (0-5); Hematocrit 30.2 % (36.0-47.0); Hypochromia SLIGHT = 6-15 cells HPF (0-5); Macrocytosis MODERATE=16-30 cells HPF (0-5); Mean Corpuscular HGB CONC 29.8 g/dL (32.0-36.0); Mean Corpuscular Hemoglobin 33.8 pg (27.0-31.0); Mean Corpuscular Volume 113.5 fL (78.0-98.0); Mean Platelet Volume 9.7 fL (7.4-10.4); Platelet Adequacy Comment Platelets Decreased; Platelet Count 137 10x3/uL (130-400); Polychromasia MODERATE = 3-4 cells HPF (0-2); RBC Distribution Width 15.4 % (11.5-14.5); Red Blood Cell (RBC) Count 2.66 mill/uL (4.20-5.40)
[2024-03-07] MEDS ORDERED: Fentanyl CADD 100 ML IV SCH (23:00)
[2024-03-07 23:11] LABS: Actual Bicarbonate (HCO3a) 34.2 mEq/L (22-28); Analyzer IN Cardio ER; Base Excess (BEa) 10.3 mEq/L (-2.0 to +3.0); CO2 Tension 43.8 mmHg (35.0-45.0); Calcium, Ionized (arterial) 1.14 mmol/L (1.12-1.30); Carboxyhemoglobin (COHb) 1.1 gm% (0.0-3.0); Hematocrit-ABG 25 % (36.0-47.0); Hemoglobin (Hb) 8.4 g/dL (12.0-16.0); Potassium - ABG Lab 4.93 mmol/L (3.70-5.30); pH, Arterial 7.511 (7.35-7.45)
[2024-03-07 23:16] LABS: Puncture Site Left Brachial artery
[2024-03-07] MEDS ORDERED: Acetaminophen 650 MG Suppository PR PRN (23:19)
[2024-03-07] MEDS ORDERED: Ondansetron PF 4 MG/2 ML Vial IVP PRN ×2 (23:19→23:30)
[2024-03-07] MEDS ORDERED: Acetaminophen 325 MG TAB PO PRN (23:30)
[2024-03-07] MEDS ORDERED: DISCONTINUE PREVIOUS NARCOTIC PAIN MEDICATIONS AND BENZODIAZEPINES FS SCH (23:30)
[2024-03-07] MEDS ORDERED: Propofol BOLUS 1,000 MG/100 ML VIAL IV PRN (23:30)
[2024-03-07] MEDS ORDERED: Ondansetron ODT 4 MG TAB SL PRN (23:30)
[2024-03-07] MEDS ORDERED: Ventilator Sedation Protocol FS SCH (23:30)
[2024-03-07] MEDS ORDERED: Fentanyl BOLUS 250 ML IVPB PRN (23:30)
[2024-03-07] MEDS ORDERED: Morphine 2 MG/ML VIAL SLOW IVP PRN (23:30)
[2024-03-07] MEDS ORDERED: Sodium Chloride 0.9% 1,000 ML IV SCH ×2 (23:30)
[2024-03-08 00:26] LABS: Bilirubin Negative (Negative); Blood, Urine 2+ (Negative); CAUTI Indications for Culture Alt mental st,lethar; Clarity Extra Turbid (Clear); Glucose, Urine (Dipstick) Normal (Negative); Ketone, Urine Negative (Negative); Leukocyte 500 Leu/uL (Negative); Nitrite Negative (Negative); Protein, Urine (Dipstick) 20 mg/dL (Neg-Trace); Specific Gravity, Urine 1.021 (1.002-1.036); Urobilinogen Normal mg/dL (Less than 2); WBC/HPF Greater than 50 HPF (0-3)
[2024-03-08 00:46] LABS: Squamous Epithelial 0-3 HPF (0-3)
[2024-03-08 00:47] LABS: Bacteria/HPF 2+ HPF (None Seen)
[2024-03-08 00:48] LABS: Urine Culture Reflex Yes Yes
[2024-03-08] MEDS: Ipratropium/Albuterol 3 ML NEB NEB SCH (01:08)
[2024-03-08] MEDS: Calcium Gluc 4.6 MEQ/10 ML (100 MG/ML) SLOW IVP SCH ×2 (02:51→02:53)
[2024-03-08] MEDS: Furosemide 20 MG (2 mL) VIAL SLOW IVP SCH (02:51)
[2024-03-08] MEDS: Lorazepam 2 MG/ML VIAL SLOW IVP PRN (03:41)
[2024-03-08 04:11] LABS: ALT (SGPT) 8 U/L (8-55); AST (SGOT) 18 U/L (5-34); Albumin 2.2 g/dL (3.4-4.8); Alkaline Phosphatase 79 U/L (40-110); Anion Gap 11 mmol/L (10-20); BUN (Urea Nitrogen) 41 mg/dL (9.8-20.1); Bilirubin, Total 0.4 mg/dL (0.2-1.2); Calc. Creatinine Clearance 29 mL/min (70-130); Calcium 8.3 mg/dL (7.8-10.44); Carbon Dioxide 34 mmol/L (23-31); Chloride 102 mmol/L (98-107); Estimated GFR 24; Globulin 2.7 g/dL (2.4-3.5); Glucose 92 mg/dL (83-110); Magnesium 1.8 mg/dL (1.6-2.6); Potassium 5.2 mmol/L (3.5-5.1); Protein, Total 4.9 g/dL (5.8-8.1); Sodium 142 mmol/L (136-145)
[2024-03-08 04:19] LABS: #Basophils Less than 0.03 10x3/uL (0.0-0.2); %Basophils 0.4 % (0.0-1.0); %Lymphocytes 19.3 % (21.0-51.0); %Monocytes 8.9 % (0.0-10.0); %Neutrophils 66.5 % (42.0-75.0); Hematocrit 26.6 % (36.0-47.0); Mean Corpuscular HGB CONC 30.1 g/dL (32.0-36.0); Mean Corpuscular Hemoglobin 33.5 pg (27.0-31.0); Mean Corpuscular Volume 111.3 fL (78.0-98.0); Mean Platelet Volume 10.1 fL (7.4-10.4); Platelet Count 138 10x3/uL (130-400); Red Blood Cell (RBC) Count 2.39 mill/uL (4.20-5.40)
[2024-03-08] MEDS ORDERED: NOREPINEPHRINE 8 MG/250 ML-D5W 250 ML IVPB SCH (05:00)
[2024-03-08] MEDS: Albumin 25% 25 GM (100 mL) BOT IVPB SCH ×2 (05:05→06:33)
[2024-03-08] MEDS: Furosemide 40 MG (4 mL) VIAL SLOW IVP SCH ×2 (06:39→15:41)
[2024-03-08 07:21] LABS: Actual Bicarbonate (HCO3a) 32.9 mEq/L (22-28); Base Excess (BEa) 8.4 mEq/L (-2.0 to +3.0); CO2 Tension 46.3 mmHg (35.0-45.0); Calcium, Ionized (arterial) 1.15 mmol/L (1.12-1.30); Carboxyhemoglobin (COHb) 1.7 gm% (0.0-3.0); Hematocrit-ABG 23 % (36.0-47.0); Hemoglobin (Hb) 7.9 g/dL (12.0-16.0); O2 Tension (PaO2), arterial 108.1 mmHg (> 60.0); Potassium - ABG Lab 4.76 mmol/L (3.70-5.30)
[2024-03-08 07:23] LABS: ALV-art Gradient 119.225 mmHg (0-20); Puncture Site Arterial Line
[2024-03-08] MEDS: cefTRIAXone\\ROCEPHIN 1 GM in Sodium Chloride 0.9% 100 ML IVPB SCH (09:36)
[2024-03-08] MEDS: Famotidine/PF 20 mg/2ml Vial SLOW IVP SCH (09:37)
[2024-03-08] MEDS: Heparin 5,000 UNITS/ML VIAL SC SCH (09:37)
[2024-03-08] MEDS: Fentanyl CADD 100 ML IV SCH (11:04)
[2024-03-08] MEDS: Dextrose 50% Abboject 50 ML SYRINGE ONE (12:29)
[2024-03-08] MEDS: Dextrose 50% Abboject 50 ML SYRINGE SLOW IVP SCH (12:48)
[2024-03-08] MEDS: Propofol 1,000 MG/100 ML VIAL IV PRN (20:47)
[2024-03-09 05:44] LABS: #Basophils Less than 0.03 10x3/uL (0.0-0.2); %Basophils 0.2 % (0.0-1.0); %Eosinophils 0.7 % (0.0-10.0); %Lymphocytes 7.3 % (21.0-51.0); %Monocytes 5.9 % (0.0-10.0); %Neutrophils 85.5 % (42.0-75.0); Hematocrit 23.9 % (36.0-47.0); Hemoglobin 7.6 g/dL (12.0-16.0); Mean Corpuscular HGB CONC 31.8 g/dL (32.0-36.0); Mean Corpuscular Hemoglobin 33.6 pg (27.0-31.0); Mean Corpuscular Volume 105.8 fL (78.0-98.0); Mean Platelet Volume 9.9 fL (7.4-10.4); Platelet Count 137 10x3/uL (130-400); Red Blood Cell (RBC) Count 2.26 mill/uL (4.20-5.40)
[2024-03-09 06:11] LABS: Anion Gap 13 mmol/L (10-20); BUN (Urea Nitrogen) 38 mg/dL (9.8-20.1); Calc. Creatinine Clearance 27 mL/min (70-130); Calcium 8.5 mg/dL (7.8-10.44); Carbon Dioxide 34 mmol/L (23-31); Chloride 100 mmol/L (98-107); Estimated GFR 23; Glucose 134 mg/dL (83-110); Potassium 4.7 mmol/L (3.5-5.1); Sodium 142 mmol/L (136-145)
[2024-03-09 07:26] LABS: Actual Bicarbonate (HCO3a) 30.8 mEq/L (22-28); Base Excess (BEa) 5.9 mEq/L (-2.0 to +3.0); CO2 Tension 46.9 mmHg (35.0-45.0); Calcium, Ionized (arterial) 1.12 mmol/L (1.12-1.30); Carboxyhemoglobin (COHb) 0.9 gm% (0.0-3.0); Hematocrit-ABG 24 % (36.0-47.0); Hemoglobin (Hb) 8.2 g/dL (12.0-16.0); O2 Tension (PaO2), arterial 144.3 mmHg (> 60.0); Potassium - ABG Lab 4.63 mmol/L (3.70-5.30); Puncture Site Arterial Line; pH, Arterial 7.435 (7.35-7.45)
[2024-03-09 07:27] LABS: ALV-art Gradient 82.275 mmHg (0-20)
[2024-03-09] MEDS: Metolazone 5 MG TAB PO SCH (08:44)
[2024-03-09] MEDS ORDERED: Vancomycin Dose by Levels Sliding Scale (Wt 71-99) FS SCH (16:30)
[2024-03-09] MEDS: Vancomycin (BATCH) 1.75 GM in Premix 1 BAG IVPB SCH (16:54)
[2024-03-10 04:14] LABS: #Basophils Less than 0.03 10x3/uL (0.0-0.2); %Basophils 0.2 % (0.0-1.0); %Lymphocytes 10.3 % (21.0-51.0); %Monocytes 7.6 % (0.0-10.0); %Neutrophils 79.5 % (42.0-75.0); Hematocrit 24.3 % (36.0-47.0); Hemoglobin 7.7 g/dL (12.0-16.0); Mean Corpuscular HGB CONC 31.7 g/dL (32.0-36.0); Mean Corpuscular Hemoglobin 33.3 pg (27.0-31.0); Mean Corpuscular Volume 105.2 fL (78.0-98.0); Mean Platelet Volume 10.7 fL (7.4-10.4); Platelet Count 188 10x3/uL (130-400); RBC Distribution Width 16.2 % (11.5-14.5); Red Blood Cell (RBC) Count 2.31 mill/uL (4.20-5.40)
[2024-03-10 04:46] LABS: ALT (SGPT) 9 U/L (8-55); AST (SGOT) 28 U/L (5-34); Albumin 2.7 g/dL (3.4-4.8); Alkaline Phosphatase 82 U/L (40-110); Anion Gap 12 mmol/L (10-20); BUN (Urea Nitrogen) 41 mg/dL (9.8-20.1); Bilirubin, Total 0.4 mg/dL (0.2-1.2); Calc. Creatinine Clearance 25 mL/min (70-130); Calcium 8.2 mg/dL (7.8-10.44); Carbon Dioxide 36 mmol/L (23-31); Chloride 96 mmol/L (98-107); Estimated GFR 21; Globulin 2.9 g/dL (2.4-3.5); Glucose 136 mg/dL (83-110); Magnesium 1.6 mg/dL (1.6-2.6); Potassium 5.3 mmol/L (3.5-5.1); Protein, Total 5.6 g/dL (5.8-8.1); Sodium 139 mmol/L (136-145)
[2024-03-10] MEDS: Famotidine/PF 20 mg/2ml Vial SLOW IVP SCH (08:26)
[2024-03-10] MEDS: Dexmedetomidine In 0.9 % NaCl 100 ML IVPB SCH (08:58)
[2024-03-10] MEDS: Furosemide 40 MG (4 mL) VIAL SLOW IVP SCH (08:58)
[2024-03-10] MEDS: LOKELMA 10 GM PACKET PO SCH (08:58)
[2024-03-10] MEDS ORDERED: QUEtiapine 25 MG TAB PO SCH (09:00)
[2024-03-10] MEDS: NOREPINEPHRINE 8 MG/250 ML-D5W 250 ML IVPB SCH (09:41)
[2024-03-10] MEDS: QUEtiapine 25 MG TAB PO SCH ×2 (11:00→21:20)
[2024-03-10] MEDS: Metolazone 5 MG TAB PO SCH (13:03)
[2024-03-10] MEDS: Furosemide 100 MG (10 mL) VIAL SLOW IVP SCH (14:01)
[2024-03-10] MEDS: CEFAZOLIN 1 GM in Sodium Chloride 0.9% 100 ML IVPB SCH (21:20)
[2024-03-11 05:00] LABS: #Basophils Less than 0.03 10x3/uL (0.0-0.2); %Basophils 0.3 % (0.0-1.0); %Eosinophils 3.6 % (0.0-10.0); %Lymphocytes 17.4 % (21.0-51.0); %Monocytes 8.8 % (0.0-10.0); %Neutrophils 69.6 % (42.0-75.0); Hematocrit 25.1 % (36.0-47.0); Mean Corpuscular HGB CONC 31.9 g/dL (32.0-36.0); Mean Corpuscular Hemoglobin 32.9 pg (27.0-31.0); Mean Corpuscular Volume 103.3 fL (78.0-98.0); Mean Platelet Volume 9.8 fL (7.4-10.4); Platelet Count 164 10x3/uL (130-400); RBC Distribution Width 15.6 % (11.5-14.5); Red Blood Cell (RBC) Count 2.43 mill/uL (4.20-5.40)
[2024-03-11] MEDS: Metolazone 5 MG TAB PO SCH (05:02)
[2024-03-11 05:17] LABS: ALT (SGPT) 7 U/L (8-55); AST (SGOT) 12 U/L (5-34); Albumin 2.4 g/dL (3.4-4.8); Alkaline Phosphatase 80 U/L (40-110); Anion Gap 12 mmol/L (10-20); BUN (Urea Nitrogen) 42 mg/dL (9.8-20.1); Bilirubin, Total 0.4 mg/dL (0.2-1.2); Calc. Creatinine Clearance 23 mL/min (70-130); Calcium 8.4 mg/dL (7.8-10.44); Carbon Dioxide 37 mmol/L (23-31); Chloride 94 mmol/L (98-107); Estimated GFR 19; Globulin 2.8 g/dL (2.4-3.5); Glucose 146 mg/dL (83-110); Magnesium 1.6 mg/dL (1.6-2.6); Potassium 4.2 mmol/L (3.5-5.1); Protein, Total 5.2 g/dL (5.8-8.1); Sodium 139 mmol/L (136-145)
[2024-03-11] MEDS: Acetaminophen 325 MG (10.15 ML) UDCUP PO PRN (12:03)
[2024-03-11] MEDS: Doxycycline 100 MG in Sodium Chloride 0.9% 100 ML IVPB SCH (19:47)
[2024-03-12 04:39] LABS: #Basophils Less than 0.03 10x3/uL (0.0-0.2); %Basophils 0.4 % (0.0-1.0); %Eosinophils 6.4 % (0.0-10.0); %Lymphocytes 16.9 % (21.0-51.0); %Monocytes 12.2 % (0.0-10.0); %Neutrophils 63.7 % (42.0-75.0); Hematocrit 24.8 % (36.0-47.0); Mean Corpuscular HGB CONC 32.3 g/dL (32.0-36.0); Mean Corpuscular Hemoglobin 32.9 pg (27.0-31.0); Mean Corpuscular Volume 102.1 fL (78.0-98.0); Platelet Count 163 10x3/uL (130-400); RBC Distribution Width 15.2 % (11.5-14.5); Red Blood Cell (RBC) Count 2.43 mill/uL (4.20-5.40)
[2024-03-12 05:01] LABS: Anion Gap 16 mmol/L (10-20); BUN (Urea Nitrogen) 46 mg/dL (9.8-20.1); Calc. Creatinine Clearance 21 mL/min (70-130); Carbon Dioxide 36 mmol/L (23-31); Chloride 93 mmol/L (98-107); Estimated GFR 18; Glucose 156 mg/dL (83-110); Potassium 3.4 mmol/L (3.5-5.1); Sodium 142 mmol/L (136-145)
[2024-03-12 05:24] VITALS: BMI 32.8
[2024-03-12 11:04] LABS: Magnesium 1.5 mg/dL (1.6-2.6)
[2024-03-12] MEDS: Potassium Chloride 40 MEQ in Premix 1 BAG IVPB SCH (11:24)
[2024-03-12] MEDS: Magnesium 2 GM/50 ML(in water) 2 GM in Premix 1 BAG IVPB SCH (18:28)
[2024-03-12] MEDS: diphenhydrAMINE 50 MG/ML VIAL IVP SCH (23:39)
[2024-03-13] MEDS: ALPRAZolam 0.5 MG TAB PER TUBE SCH (00:55)
[2024-03-13 04:54] LABS: #Basophils 0.03 10x3/uL (0.0-0.2); %Basophils 0.6 % (0.0-1.0); %Eosinophils 6.9 % (0.0-10.0); %Lymphocytes 16.3 % (21.0-51.0); %Monocytes 15.3 % (0.0-10.0); %Neutrophils 60.7 % (42.0-75.0); Hematocrit 23.3 % (36.0-47.0); Hemoglobin 7.4 g/dL (12.0-16.0); Mean Corpuscular HGB CONC 31.8 g/dL (32.0-36.0); Mean Corpuscular Hemoglobin 32.7 pg (27.0-31.0); Mean Corpuscular Volume 103.1 fL (78.0-98.0); Mean Platelet Volume 9.7 fL (7.4-10.4); Platelet Count 181 10x3/uL (130-400); RBC Distribution Width 14.9 % (11.5-14.5); Red Blood Cell (RBC) Count 2.26 mill/uL (4.20-5.40)
[2024-03-13 05:54] LABS: Anion Gap 15 mmol/L (10-20); BUN (Urea Nitrogen) 48 mg/dL (9.8-20.1); Calc. Creatinine Clearance 20 mL/min (70-130); Calcium 8.2 mg/dL (7.8-10.44); Carbon Dioxide 38 mmol/L (23-31); Chloride 90 mmol/L (98-107); Estimated GFR 18; Glucose 128 mg/dL (83-110); Potassium 3.7 mmol/L (3.5-5.1); Sodium 139 mmol/L (136-145)
[2024-03-13] MEDS: Acetaminophen 650 MG/20.3 ML UDCUP PO PRN (08:05)
[2024-03-13 13:47] LABS: Pleural Fluid, Protein 2.5 g/dL; RBC Count-Automated (BF) 6695 /cu.mm; WBC/Nucleated-Auto (BF) 3805 /cu.mm
[2024-03-13 14:10] LABS: BF Color Yellow; Body Fluid Source Thoracentesis Fluid; Clarity Cloudy/Turbid (Clear); Tube # EDTA
[2024-03-13 15:14] LABS: BF Segmented Neutrophils 28 %; Cell Count Non Hematic 58 %; Lymphocytes 14 %
[2024-03-13] MEDS: NOREPINEPHRINE 8 MG/250 ML-D5W 250 ML IVPB SCH (21:46)
[2024-03-14] MEDS: Furosemide 40 MG (4 mL) VIAL SLOW IVP SCH (05:17)
[2024-03-14 06:06] LABS: #Basophils Less than 0.03 10x3/uL (0.0-0.2); %Basophils 0.3 % (0.0-1.0); %Eosinophils 4.9 % (0.0-10.0); %Lymphocytes 14.4 % (21.0-51.0); %Monocytes 15.4 % (0.0-10.0); %Neutrophils 64.7 % (42.0-75.0); Hematocrit 22.8 % (36.0-47.0); Hemoglobin 7.1 g/dL (12.0-16.0); Mean Corpuscular HGB CONC 31.1 g/dL (32.0-36.0); Mean Corpuscular Hemoglobin 32.9 pg (27.0-31.0); Mean Corpuscular Volume 105.6 fL (78.0-98.0); Mean Platelet Volume 9.4 fL (7.4-10.4); Platelet Count 174 10x3/uL (130-400); Red Blood Cell (RBC) Count 2.16 mill/uL (4.20-5.40)
[2024-03-14 06:22] LABS: Anion Gap 15 mmol/L (10-20); BUN (Urea Nitrogen) 53 mg/dL (9.8-20.1); Calc. Creatinine Clearance 16 mL/min (70-130); Calcium 7.9 mg/dL (7.8-10.44); Carbon Dioxide 38 mmol/L (23-31); Chloride 89 mmol/L (98-107); Estimated GFR 16; Glucose 171 mg/dL (83-110); Potassium 3.1 mmol/L (3.5-5.1); Sodium 139 mmol/L (136-145)
[2024-03-14] MEDS: Metolazone 2.5 MG TAB PO SCH (08:34)
[2024-03-14] MEDS: Potassium Chloride 20 MEQ in Premix 1 BAG IVPB SCH (08:37)
[2024-03-14 08:57] LABS: Magnesium 1.7 mg/dL (1.6-2.6); Phosphorus 3.6 mg/dL (2.3-4.7)
[2024-03-14 13:47] VITALS: BMI 28.5
[2024-03-14] MEDS: Atorvastatin Calcium 40 MG TAB PO SCH (20:25)
[2024-03-14] MEDS: Calcium Acetate 667 MG CAP PO SCH (20:25)
[2024-03-15 05:12] LABS: #Basophils Less than 0.03 10x3/uL (0.0-0.2); %Basophils 0.4 % (0.0-1.0); %Eosinophils 8.2 % (0.0-10.0); %Lymphocytes 21.1 % (21.0-51.0); %Monocytes 16.6 % (0.0-10.0); %Neutrophils 52.9 % (42.0-75.0); Hematocrit 23.4 % (36.0-47.0); Hemoglobin 7.2 g/dL (12.0-16.0); Mean Corpuscular HGB CONC 30.8 g/dL (32.0-36.0); Mean Corpuscular Hemoglobin 32.9 pg (27.0-31.0); Mean Corpuscular Volume 106.8 fL (78.0-98.0); Mean Platelet Volume 9.7 fL (7.4-10.4); Platelet Count 191 10x3/uL (130-400); RBC Distribution Width 14.7 % (11.5-14.5); Red Blood Cell (RBC) Count 2.19 mill/uL (4.20-5.40)
[2024-03-15 05:39] LABS: Anion Gap 12 mmol/L (10-20); BUN (Urea Nitrogen) 56 mg/dL (9.8-20.1); Calc. Creatinine Clearance 17 mL/min (70-130); Calcium 8.4 mg/dL (7.8-10.44); Carbon Dioxide 43 mmol/L (23-31); Chloride 87 mmol/L (98-107); Estimated GFR 17; Glucose 99 mg/dL (83-110); Potassium 3.2 mmol/L (3.5-5.1); Sodium 139 mmol/L (136-145)
[2024-03-15] MEDS: Sevelamer Carbonate 800 MG TAB PO SCH (09:12)
[2024-03-15] MEDS: Aspirin Chewable 81 MG TAB PO SCH (09:12)
[2024-03-15] MEDS: Tamsulosin HCl 0.4 MG CAP PO SCH (09:13)
[2024-03-15] MEDS: Clopidogrel Bisulfate 75 MG TAB PO SCH (09:13)
[2024-03-15] MEDS: Calcium Carbonate 500 MG ChewTAB PO SCH (09:13)
[2024-03-15] MEDS: Calcitriol 0.25 MCG CAP PO SCH (09:13)
[2024-03-15 12:16] VITALS: BP 121/59
[2024-03-15] MEDS: acetaZOLAMIDE Sodium 500 mg Vial IVP SCH (15:39)
[2024-03-15] MEDS: Sterile Water 10 ML VIAL IVP SCH (15:39)
[2024-03-16 04:22] LABS: Hematocrit 25.3 % (36.0-47.0); Hemoglobin 7.7 g/dL (12.0-16.0)
[2024-03-16 04:37] LABS: Anion Gap 12 mmol/L (10-20); BUN (Urea Nitrogen) 58 mg/dL (9.8-20.1); Calc. Creatinine Clearance 17 mL/min (70-130); Calcium 8.3 mg/dL (7.8-10.44); Carbon Dioxide 42 mmol/L (23-31); Chloride 88 mmol/L (98-107); Estimated GFR 17; Glucose 83 mg/dL (83-110); Sodium 139 mmol/L (136-145)
[2024-03-16] MEDS ORDERED: Potassium Chloride 20 MEQ in Premix 1 BAG IVPB SCH (05:45)
[2024-03-16] MEDS: Potassium Chloride 20 MEQ in Premix 1 BAG IVPB SCH (06:10)
[2024-03-16 07:32] VITALS: TEMP 98.3
[2024-03-17] MEDS ORDERED: Enoxaparin 30 MG (0.3 mL) SYRINGE SC SCH ×2 (09:00)
== END 2024-03-16 15:10 | DRG 207 ==
LOC: ERS 22:10 → CCU 23:19
PROVIDERS: ADMIT Student in an Organized Health Care Education/Training Program; ATTEND Family Medicine
PROC: 0BH17EZ Insertion of Endotracheal Airway into Trachea, Via Natural or Artificial Opening (ICD-10-PCS; principal; 2024-03-07)
PROC: 5A1955Z Respiratory Ventilation, Greater than 96 Consecutive Hours (ICD-10-PCS; 2024-03-07)
PROC: 4A133R1 Monitoring of Arterial Saturation, Peripheral, Percutaneous Approach (ICD-10-PCS; 2024-03-07)
PROC: 3E033XZ Introduction of Vasopressor into Peripheral Vein, Percutaneous Approach (ICD-10-PCS; 2024-03-07)
PROC: 03HY32Z Insertion of Monitoring Device into Upper Artery, Percutaneous Approach (ICD-10-PCS; 2024-03-08)
PROC: 02HV33Z Insertion of Infusion Device into Superior Vena Cava, Percutaneous Approach (ICD-10-PCS; 2024-03-08)
PROC: 0W9B30Z Drainage of Left Pleural Cavity with Drainage Device, Percutaneous Approach (ICD-10-PCS; 2024-03-13)
PROC: 0W9930Z Drainage of Right Pleural Cavity with Drainage Device, Percutaneous Approach (ICD-10-PCS; 2024-03-13)
DX: J96.01 Acute respiratory failure with hypoxia (principal); I50.43 Acute on chronic combined systolic (congestive) and diastolic (congestive) heart failure; G93.41 Metabolic encephalopathy; N17.9 Acute kidney failure, unspecified; I13.0 Hypertensive heart and chronic kidney disease with heart failure and stage 1 through stage 4 chronic kidney disease, or unspecified chronic kidney disease; N39.0 Urinary tract infection, site not specified; J98.19 Other pulmonary collapse; N18.4 Chronic kidney disease, stage 4 (severe); I48.92 Unspecified atrial flutter; J90 Pleural effusion, not elsewhere classified; J98.11 Atelectasis; E87.3 Alkalosis; Z66 Do not resuscitate; Z51.5 Encounter for palliative care; J96.02 Acute respiratory failure with hypercapnia; B95.61 Methicillin susceptible Staphylococcus aureus infection as the cause of diseases classified elsewhere; E11.22 Type 2 diabetes mellitus with diabetic chronic kidney disease; E87.5 Hyperkalemia; Z79.899 Other long term (current) drug therapy; Z79.82 Long term (current) use of aspirin; Z79.02 Long term (current) use of antithrombotics/antiplatelets; E66.01 Morbid (severe) obesity due to excess calories; E78.5 Hyperlipidemia, unspecified; Z68.27 Body mass index [BMI] 27.0-27.9, adult; G89.29 Other chronic pain; D53.9 Nutritional anemia, unspecified; I34.0 Nonrheumatic mitral (valve) insufficiency
CPT/HCPCS: 0042T; 31500; 36415; 36416; 36600; 51702; 70450; 70496; 70498; 71045; 71250; 80048; 80053; 81001; 82140; 82150; 82805; 82945; 83605; 83615; 83735; 83880; 83986; 84100; 84157; 84478; 84484; 85014; 85018; 85025; 85060; 85610; 85730; 87040; 87077; 87086; 87116; 87186; 87206; 88112; 89051; 93005; 93306; 94002; 94003; 94640; 94760; 96365; J0171; J0612; J0690; J0696; J1120; J1200; J1644; J1940; J2060; J2704; J3010; J3370; J3475; J3480; J3490; J7030; J7620; J7999; P9047; Q9967